=== PATIENT | female | born 1985 | race Caucasian/White ===

== ENCOUNTER 2017-04-25 10:22 | Emergency (ER) | payer OTHER ==
[~2017-04-25] VITALS: Ht 157.5 cm; Wt 68.0 kg
[~2017-04-25 10:22] MED LIST: ACET325 PO; ALBU90OI6 INH; Atenolol25 MG; BUSP5; BUSP5 PO; CEPH500 PO; CYCL10 PO; Cipro500 MG PO; DOXYCYCLINE; ESOM20 PO; Esgic Tablet1 EACH PO; FIORICET 50-301 EACH PO; FOLI1 PO; HYDR1TAB94 PO; Keflex500 MG PO; LAMO5; Lamictal150 MG PO; Lithium Carbon450 MG PO; MAGOXI400 PO; METPHE20 PO; METPHE5; Norco 5-325 Ta1 EACH PO; ONDA4 PO; OXYACE5T PO; PROC10 PO; Percocet 5-3251 EACH PO; Polysaccharide150 MG PO; QUET100 PO; QVAR7.3 G1 IH; SERT25 PO; TOPI25 PO; Triamcinolone A15 GM TOP; Verotin-Gr Cap1 EACH PO; Zithromax250 MG PO; Zofran4 MG PO; Zofran8 MG PO
[2017-04-25] MEDS ORDERED: Opcon-A Eye Dro15 M1 RIGHTEYE (10:58)
[2017-04-25] MEDS ORDERED: Triamcinolone A15 G3 TOP (10:58)
== END 2017-04-25 11:04 | disposition home or self-care (01) ==
LOC: ER 10:22
DX: L25.9 Unspecified contact dermatitis, unspecified cause (principal); Z88.6 Allergy status to analgesic agent; Z88.8 Allergy status to other drugs, medicaments and biological substances; Z88.2 Allergy status to sulfonamides; Z88.5 Allergy status to narcotic agent; Z79.899 Other long term (current) drug therapy; J45.909 Unspecified asthma, uncomplicated; G43.909 Migraine, unspecified, not intractable, without status migrainosus; F31.9 Bipolar disorder, unspecified
CPT/HCPCS: 99282

== ENCOUNTER 2017-05-06 23:34 | Emergency (ER) | payer OTHER ==
[~2017-05-06] VITALS: Ht 157.5 cm; Wt 68.0 kg
[~2017-05-06 23:34] MED LIST changes: +Opcon-A Eye Dro15 M1 RIGHTEYE; +Triamcinolone A15 G3 TOP
[2017-05-07] MEDS ORDERED: Triamcinolone A15 GM TOP (04:33)
== END 2017-05-07 04:40 | disposition home or self-care (01) ==
LOC: ER 23:34
DX: R21 Rash and other nonspecific skin eruption (principal); H57.11 Ocular pain, right eye; J45.909 Unspecified asthma, uncomplicated; Z98.51 Tubal ligation status; Z90.49 Acquired absence of other specified parts of digestive tract; Z88.7 Allergy status to serum and vaccine; Z88.6 Allergy status to analgesic agent; Z88.2 Allergy status to sulfonamides; Z88.8 Allergy status to other drugs, medicaments and biological substances; Z88.5 Allergy status to narcotic agent; Z79.899 Other long term (current) drug therapy; Z87.820 Personal history of traumatic brain injury
CPT/HCPCS: 99283

== ENCOUNTER 2017-05-07 06:14 | Emergency (ER) | payer OTHER ==
[~2017-05-07] VITALS: Ht 162.6 cm; Wt 79.4 kg
[2017-05-07 06:38] LABS: BASOPHILS ABSOLUTE AUTO 0.02 K/mm3 (0.00-0.23); BASOPHILS PERCENT AUTO 0 % (0-2); EOSINOPHILS ABSOLUTE AUTO 0.18 K/mm3 (0.00-0.68); EOSINOPHILS PERCENT AUTO 2 % (0-6); Hematocrit 38.7 % (33.0-51.0); IMMATURE GRAN ABSOLUTE AUTO 0.04 K/mm3 (0.00-0.10); IMMATURE GRAN PERCENT AUTO 0 % (0-1); LYMPHOCYTES ABSOLUTE AUTO 1.95 K/mm3 (0.84-5.20); LYMPHOCYTES PERCENT AUTO 16 % (21-46); MONOCYTES PERCENT AUTO 7 % (4-13); Mean Corpuscular HGB 30.4 pg (26.0-34.0); Mean Corpuscular HGB Conc 33.6 g/dL (31.5-36.5); Mean Corpuscular Volume 90 fL (80-100); Mean Platelet Volume 10.9 fL (9.1-12.4); NEUTROPHILS ABSOLUTE AUTO 8.87 K/mm3 (1.96-9.15); NEUTROPHILS PERCENT AUTO 75 % (41-73); Platelet Count 200 K/mm3 (150-400); RDW Coefficient Variation 12.8 % (11.7-14.2); RDW Standard Deviation 42.4 fL (35.1-46.3); Red Blood Cell Count 4.28 M/mm3 (3.80-5.20); White Blood Cell Count 11.86 K/mm3 (4.00-11.30)
[2017-05-07 06:48] LABS: Alanine Aminotransfer (ALT/SGP 14 U/L (12-78); Albumin, Blood 3.5 g/dL (3.4-5.0); Albumin/Globulin Ratio 1.2 (0.8-1.8); Alk Phos 43 U/L (50-136); Anion Gap 6 mmol/L (6-16); Aspartate Aminotrans (AST/SGOT 14 U/L (12-37); Bilirubin, Total 0.5 mg/dL (0.1-1.0); Blood Urea Nitrogen 14 mg/dL (8-24); Bun/Creatinine Ratio 26.8 (12.0-20.0); CO2, Blood 25 mmol/L (21-32); Chloride, Blood 109 mmol/L (98-108); Creatinine, Blood 0.52 mg/dL (0.40-1.00); Ethanol (Alcohol), Blood, Med <3 mg/dL; Globulin, Blood 2.9 g/dL (2.2-4.0); Glomerular Filtration Rate >60 (60-); Glucose, Blood 104 mg/dL (70-99); Potassium, Blood 3.6 mmol/L (3.5-5.5); Sodium, Blood 140 mmol/L (136-145); Total Protein, Blood 6.4 g/dL (6.4-8.2)
[2017-05-07 06:52] LABS: International Normalized Ratio 1.09; Prothrombin Time Results 11.4 Sec (9.7-11.5)
== END 2017-05-07 07:35 | disposition short-term general hospital (02) ==
LOC: ER 06:14
PROVIDERS: Emergency Medicine
DX: S12.040A Displaced lateral mass fracture of first cervical vertebra, initial encounter for closed fracture (principal); S00.11XA Contusion of right eyelid and periocular area, initial encounter; S00.511A Abrasion of lip, initial encounter; S09.90XA Unspecified injury of head, initial encounter; J45.909 Unspecified asthma, uncomplicated; Z88.5 Allergy status to narcotic agent; Z87.820 Personal history of traumatic brain injury; Z98.51 Tubal ligation status; Z88.6 Allergy status to analgesic agent; Z88.2 Allergy status to sulfonamides; Z88.7 Allergy status to serum and vaccine; Z88.8 Allergy status to other drugs, medicaments and biological substances; Z91.012 Allergy to eggs; Z90.49 Acquired absence of other specified parts of digestive tract; V49.9XXA Car occupant (driver) (passenger) injured in unspecified traffic accident, initial encounter
CPT/HCPCS: 51702; 70450; 71260; 72125; 74177; 80053; 85025; 85610; 85730; 86850; 86900; 86901; 96374; 96375; 96376; 99285; G0480; J1170; J2405; Q9967

== ENCOUNTER 2017-05-23 12:53 | Emergency (ER) | payer OTHER ==
[~2017-05-23] VITALS: Ht 157.5 cm; Wt 68.0 kg
[2017-05-23] MEDS ORDERED: OXYC5 PO (15:02)
== END 2017-05-23 15:05 | disposition home or self-care (01) ==
LOC: ER 12:53
DX: S63.92XA Sprain of unspecified part of left wrist and hand, initial encounter (principal); S00.03XA Contusion of scalp, initial encounter; J45.909 Unspecified asthma, uncomplicated; F31.9 Bipolar disorder, unspecified; Z88.7 Allergy status to serum and vaccine; Z88.6 Allergy status to analgesic agent; Z88.2 Allergy status to sulfonamides; Z91.012 Allergy to eggs; Z88.5 Allergy status to narcotic agent; Z88.8 Allergy status to other drugs, medicaments and biological substances; Z79.899 Other long term (current) drug therapy; Z98.51 Tubal ligation status; Z90.49 Acquired absence of other specified parts of digestive tract; V49.9XXA Car occupant (driver) (passenger) injured in unspecified traffic accident, initial encounter
CPT/HCPCS: 70450; 73130; 99284

== ENCOUNTER → 2017-06-05 | Outpatient (CLI) | payer OTHER ==
[~2017-06-05] MED LIST changes: +Amphetamine Sal20 MG PO; +CLON.5 PO; +HYDR-86 PO; +OXYC5 PO
== END | disposition home or self-care (01) ==
LOC: LAB SHORT 16:22 → LAB EV 16:22
DX: S01.01XA Laceration without foreign body of scalp, initial encounter (principal)
CPT/HCPCS: 87070; 87205

== ENCOUNTER 2017-07-05 10:50 | Emergency (ER) | payer OTHER ==
[~2017-07-05] VITALS: Ht 157.5 cm; Wt 68.0 kg
[~2017-07-05 10:50] MED LIST changes: -Amphetamine Sal20 MG PO; -CLON.5 PO; -HYDR-86 PO
== END 2017-07-05 12:03 | disposition home or self-care (01) ==
LOC: ER 10:50
DX: Z48.811 Encounter for surgical aftercare following surgery on the nervous system (principal); J45.909 Unspecified asthma, uncomplicated; F31.9 Bipolar disorder, unspecified; Z79.899 Other long term (current) drug therapy; Z88.7 Allergy status to serum and vaccine; Z88.6 Allergy status to analgesic agent; Z88.2 Allergy status to sulfonamides; Z91.012 Allergy to eggs; Z88.5 Allergy status to narcotic agent; Z88.8 Allergy status to other drugs, medicaments and biological substances; Z88.1 Allergy status to other antibiotic agents
CPT/HCPCS: 99282

== ENCOUNTER → 2017-07-21 | Outpatient (CLI) | payer OTHER | END | disposition home or self-care (01) | LOC: LAB SHORT 16:52 → LAB EV 16:52 | DX: S12.02XA Unstable burst fracture of first cervical vertebra, initial encounter for closed fracture (principal) ==

== ENCOUNTER 2018-01-30 19:30 | Emergency (ER) | payer OTHER ==
[~2018-01-30] VITALS: Ht 157.5 cm; Wt 72.6 kg
[2018-01-30] MEDS ORDERED: HYDR-86 PO (19:37)
[2018-01-30] MEDS ORDERED: Amphetamine Sal20 MG PO (19:37)
[2018-01-30] MEDS ORDERED: CLON.5 PO (19:37)
[2018-01-30] MEDS ORDERED: HYDR1TAB94 PO (20:13)
== END 2018-01-30 20:24 | disposition home or self-care (01) ==
LOC: ER 19:30
DX: M25.511 Pain in right shoulder (principal); X50.0XXA Overexertion from strenuous movement or load, initial encounter; Z88.6 Allergy status to analgesic agent; Z88.8 Allergy status to other drugs, medicaments and biological substances; Z88.5 Allergy status to narcotic agent; Z88.1 Allergy status to other antibiotic agents; Z79.899 Other long term (current) drug therapy; Z79.891 Long term (current) use of opiate analgesic; J45.909 Unspecified asthma, uncomplicated; G43.909 Migraine, unspecified, not intractable, without status migrainosus; F31.9 Bipolar disorder, unspecified
CPT/HCPCS: 73030; 99283-25